=== PATIENT | female | born 1950 | race Caucasian/White ===

== ENCOUNTER 2019-02-23 08:35 | Emergency (ER) | payer OTHER, SELFPAY ==
--- NOTE | 2019-02-23 08:41 | DI.RAD.S_ITS ---
PROCEDURE: XR LUMBAR SPINE 2-3V INDICATIONS: pain, sciatica TECHNIQUE: 3 views of the lumbar spine were acquired. COMPARISON: None. FINDINGS: Bones: 5 [id number] vertebrae are present. There is levoscoliotic bony alignment moderate in severity centered at L2. No definite acute vertebral body compression fractures but associated with the scoliosis is reduction of vertebral height on the right at L2 and to a lesser degree on the right at L3. There is also mild height reduction leftward at the L1 level. Osteophytic spurring is prominent along the upper and middle thirds of the LS spine. Facet osteoarthritis is prominent from L3 inferiorly.. No suspicious bony lesions. Soft tissues: Overlying bowel gas pattern is normal. No suspicious soft tissue calcifications. IMPRESSION: There is a extensive degree of degenerative changes along the lumbosacral spine including disc height reduction, endplate osteophyte formation, convex leftward scoliosis, and asymmetric vertebral height reduction both on the right and the left depending on the level evaluated. Each of these abnormalities appears chronic, and a acute compression fracture is not seen. If MR scanning is obtained for spinal and foraminal stenosis/disc herniation that study would accurately detect a superimposed compression fracture also. Dictated by: Tommie Hodges M.D. on 02/23/2019 at 9:09 Approved by: Tommie Hodges M.D. on 02/23/2019 at 9:13
[2019-02-23 08:48] VITALS: BP 148/108; PULSE 77; RESP 20; TEMP 36.8; O2SAT 97; BMI 24.9
--- NOTE | 2019-02-23 08:48 | ED.BACK ---
HPI - Back Pain/Injury General Chief Complaint: Back Pain/Injury Stated Complaint: 'think i have sciatica' x5day Time Seen by Provider: 02/23/19 08:45 Source: patient Mode of arrival: ambulatory Limitations: no limitations History of Present Illness HPI Narrative: 68-year-old female comes to the emergency department with complaint of possible sciatica. Patient states she has pain kind of in the right sacrum area that radiates down her leg towards her knee it is worse when she sitting or trying to lay. If she standing or walking it is improved patient states she has not had similar symptoms in the past. She has not had any trauma. She has not had any numbness or weakness. No loss of bowel or bladder control. She does have osteoporosis, she has had bilateral hip replacements. She was seen at the clinic 2 days ago and started on gabapentin she has taken it for at least 24 hours but without improvement. She has been taking Tylenol. She did try some Aleve it was helpful but upset her stomach. She denies any fevers or chills. Related Data Home Medications Medication Instructions Recorded Confirmed bupropion HCl 150 mg PO QDAY #0 04/23/16 diazepam [Valium] PO HS #0 tab 04/23/16 sertraline 100 mg PO SEE INSTRUCTIONS #0 tab 04/23/16 trazodone #0 04/23/16 Previous Rx's Medication Instructions Recorded tramadol 50 mg PO Q6H PRN #7 tab 02/23/19 Allergies Allergy/AdvReac Type Severity Reaction Status Date / Time No Known Drug Allergies Allergy Verified 02/23/19 08:41 Review of Systems Review of Systems ROS Unobtainable: All systems reviewed & are unremarkable except as noted in HPI and below Constitutional Denies chills and Denies fever(s) Gastrointestinal Gastrointestinal: Denies abdominal pain, Denies change in stool character, Denies fecal incontinence, Denies nausea and Denies vomiting Genitourinary Denies hematuria, Denies dysuria, Denies flank pain, Denies urinary incontinence, Denies urinary hesitancy and Denies urinary urgency Musculoskeletal Reports as per HPI, Denies abnormal gait, Reports back pain, Denies arthralgias, Denies limited range of motion, Denies numbness, Reports radiating pain into limb and Denies tingling Integumentary/Breasts Denies rash Neurologic Denies abnormal gait, Denies numbness and Denies tingling [facility] Social History Smoking Status: Never smoker Social History Smoking Status: Never smoker Exam Narrative Exam Narrative: GEN: well nourished, well appearing female, alert and oriented x 3, patient appears to be in mild distress. Patient is standing in room and prefers to stand. HEENT: Atraumatic, pupils are equal round reactive to light, extraocular movements are intact. HEART: Regular rate and rhythm without murmur, clicks, rubs. LUNGS:Lungs clear to auscultation, no wheezes, rales, crackles, chest moves symmetrically ABD:bowel sounds normal, soft, non-tender, no guarding, rebound, rigidity, no masses noted, no hepatosplenomegaly :No CVA tenderness BACK: No cervical, thoracic or lumbar vertebral point tenderness. Patient has some tightness in the lower lumbar region she has little bit of pain with palpation along the sacroiliac joint. Patient has normal range of motion. Patient's gait. Rectal exam is deferred. Patient is most uncomfortable while sitting on the edge of the bed for her strength testing. Muscle strength is 5/5 in lower extremities, DTRs are 2/4 and lower extremities. Dorsalis pedis and tibialis pulses are 2+ and lower extremities. Sensation is intact in the lower extremities. MSCL: Non-tender, no muscle atrophy, muscles strength 5/5 upper and lower extremities, full range of motion, normal gait NEURO:CN 2-12 intact, sensation normal, reflexes 2/4 upper and lower extremities. finger nose finger test normal, heel davis test normal, romberg normal Initial Vital Signs Initial Vital Signs: Vital Signs Temperature 98.2 F 02/23/19 08:48 Pulse Rate 77 02/23/19 08:48 Respiratory Rate 20 02/23/19 08:48 Blood Pressure 148/108 H 02/23/19 08:48 Pulse Oximetry 97 02/23/19 08:48 Course Orders Ordered: ED Orders 02/23/19 08:41 XR lumbar spine 2-3V Stat Discontinued Medications Ketorolac Tromethamine (Toradol) 60 mg IM NOW ONE Stop: 02/23/19 08:55 Last Admin: 02/23/19 08:59 Dose: 60 mg Vital Signs - 8 hr 02/23/19 08:48 02/23/19 09:29 Temperature 98.2 F Pulse Rate 77 82 Respiratory Rate 20 16 Blood Pressure 148/108 H Blood Pressure [Left Arm] 152/81 H Pulse Oximetry 97 96 [facility] - Back Pain/Injury Imaging Data Lspine xray: Radiologist's impression: [address] [address] XRay Report Signed Patient: Karina Sneed CMR#: [id number] : [id number]:[id number] Age/Sex: 68 / FDate of Service: 02/23/19 Loc: ED Accession Number: [id number] Procedure: XR lumbar spine 2-3V Ordering Provider: Nimco Coreas D.O. PROCEDURE: XR LUMBAR SPINE 2-3V INDICATIONS: pain, sciatica TECHNIQUE: 3 views of the lumbar spine were acquired. COMPARISON: None. FINDINGS: Bones: 5 [id number] vertebrae are present. There is levoscoliotic bony alignment moderate in severity centered at L2. No definite acute vertebral body compression fractures but associated with the scoliosis is reduction of vertebral height on the right at L2 and to a lesser degree on the right at L3. There is also mild height reduction leftward at the L1 level. Osteophytic spurring is prominent along the upper and middle thirds of the LS spine. Facet osteoarthritis is prominent from L3 inferiorly.. No suspicious bony lesions. Soft tissues: Overlying bowel gas pattern is normal. No suspicious soft tissue calcifications. IMPRESSION: There is a extensive degree of degenerative changes along the lumbosacral spine including disc height reduction, endplate osteophyte formation, convex leftward scoliosis, and asymmetric vertebral height reduction both on the right and the left depending on the level evaluated. Each of these abnormalities appears chronic, and a acute compression fracture is not seen. If MR scanning is obtained for spinal and foraminal stenosis/disc herniation that study would accurately detect a superimposed compression fracture also. Dictated by: Tommie Hodges M.D. on 02/23/2019 at 9:09 Approved by: Tommie Hodges M.D. on 02/23/2019 at 9:13 [facility] Narrative Medical decision making narrative: Patient prefers to avoid any Percocet she has had this in the past. She is on gabapentin currently which he received from the clinic, patient has only taken it for 24 hours into 100 mg 3 times daily. We discussed that this is a titratable medication and that she should do this with her primary care. Also discussed that it takes a couple weeks to really be fully effective. Discussed shaking continue Tylenol 1000 mg every 8 hours. Given a short-term script for Ultram along with a gabapentin. Shared he has a referral for PT and is expressing interest. X-ray shows lots of degenerative changes, she is nontender throughout the L-spine. Suspect that her changes are more chronic and discussed with her at length. Patient ambulated out of department. Discharge Plan Departure Patient Disposition: Home Clinical Impression: Sciatica Discharge Date/Time: 02/23/19 09:28 Interventions: ED Discharge Assessment Last Done: 02/23/19 09:28 Instructions: DI for Back Pain With Sciatica Activity Restrictions/Additional Instructions: Follow-up with your physician in the next 3-5 days for recheck and referral to PT. Continue Tylenol up to a 1000 mg every 8 hours as needed for pain. I would recommend continuing gabapentin this medication take some time for it to become affective. Take pain medication as prescribed. You may take 1-2 tablets every 6 hours as needed for pain. You may take this medication with Tylenol, this medication can make you sleepy do not drive, perform hazardous activities or make any major decisions while taking it. Return to the emergency department for fevers going 100.4 F, rapidly worsening pain, new weakness, numbness, inability to move leg, loss of bowel or bladder control or other new or concerning symptoms. Prescriptions: New tramadol 50 mg tablet 50 mg PO Q6H PRN (Reason: pain) Qty: 7 RF: 0 No Action sertraline 100 MG tablet 100 mg PO SEE INSTRUCTIONS Qty: 0 RF: 0 bupropion HCl 100 MG tablet 150 mg PO QDAY Qty: 0 RF: 0 trazodone 50 mg tablet Qty: 0 RF: 0 diazepam [Valium] 5 mg tablet PO HS Qty: 0 RF: 0
[2019-02-23] MEDS: KETOROLAC 60 MG/2 ML VIAL IM (08:59)
--- NOTE | 2019-02-23 09:00 | ED_ITS ---
HPI - Back Pain/Injury General Chief Complaint: Back Pain/Injury Stated Complaint: 'think i have sciatica' x5day Time Seen by Provider: 02/23/19 08:45 Source: patient Mode of arrival: ambulatory Limitations: no limitations History of Present Illness HPI Narrative: 68-year-old female comes to the emergency department with complaint of possible sciatica. Patient states she has pain kind of in the right sacrum area that radiates down her leg towards her knee it is worse when she sitting or trying to lay. If she standing or walking it is improved patient states she has not had similar symptoms in the past. She has not had any trauma. She has not had any numbness or weakness. No loss of bowel or bladder control. She does have osteoporosis, she has had bilateral hip replacements. She was seen at the clinic 2 days ago and started on gabapentin she has taken it for at least 24 hours but without improvement. She has been taking Tylenol. She did try some Aleve it was helpful but upset her stomach. She denies any fevers or chills. Related Data Home Medications Medication Instructions Recorded Confirmed bupropion HCl 150 mg PO QDAY #0 04/23/16 diazepam [Valium] PO HS #0 tab 04/23/16 sertraline 100 mg PO SEE INSTRUCTIONS #0 tab 04/23/16 trazodone #0 04/23/16 Previous Rx's Medication Instructions Recorded tramadol 50 mg PO Q6H PRN #7 tab 02/23/19 Allergies Allergy/AdvReac Type Severity Reaction Status Date / Time No Known Drug Allergies Allergy Verified 02/23/19 08:41 Review of Systems Review of Systems ROS Unobtainable: All systems reviewed & are unremarkable except as noted in HPI and below Constitutional Denies chills and Denies fever(s) Gastrointestinal Gastrointestinal: Denies abdominal pain, Denies change in stool character, Denies fecal incontinence, Denies nausea and Denies vomiting Genitourinary Denies hematuria, Denies dysuria, Denies flank pain, Denies urinary incontinence, Denies urinary hesitancy and Denies urinary urgency Musculoskeletal Reports as per HPI, Denies abnormal gait, Reports back pain, Denies arthralgias, Denies limited range of motion, Denies numbness, Reports radiating pain into limb and Denies tingling Integumentary/Breasts Denies rash Neurologic Denies abnormal gait, Denies numbness and Denies tingling [facility] Social History Smoking Status: Never smoker Social History Smoking Status: Never smoker Exam Narrative Exam Narrative: GEN: well nourished, well appearing female, alert and oriented x 3, patient appears to be in mild distress. Patient is standing in room and prefers to stand. HEENT: Atraumatic, pupils are equal round reactive to light, extraocular movements are intact. HEART: Regular rate and rhythm without murmur, clicks, rubs. LUNGS:Lungs clear to auscultation, no wheezes, rales, crackles, chest moves symmetrically ABD:bowel sounds normal, soft, non-tender, no guarding, rebound, rigidity, no masses noted, no hepatosplenomegaly :No CVA tenderness BACK: No cervical, thoracic or lumbar vertebral point tenderness. Patient has some tightness in the lower lumbar region she has little bit of pain with palpation along the sacroiliac joint. Patient has normal range of motion. Patient's gait. Rectal exam is deferred. Patient is most uncomfortable while sitting on the edge of the bed for her strength testing. Muscle strength is 5/5 in lower extremities, DTRs are 2/4 and lower extremities. Dorsalis pedis and tibialis pulses are 2+ and lower extremities. Sensation is intact in the lower extremities. MSCL: Non-tender, no muscle atrophy, muscles strength 5/5 upper and lower extremities, full range of motion, normal gait NEURO:CN 2-12 intact, sensation normal, reflexes 2/4 upper and lower extremities. finger nose finger test normal, heel davis test normal, romberg normal Initial Vital Signs Initial Vital Signs: Vital Signs Temperature 98.2 F 02/23/19 08:48 Pulse Rate 77 02/23/19 08:48 Respiratory Rate 20 02/23/19 08:48 Blood Pressure 148/108 H 02/23/19 08:48 Pulse Oximetry 97 02/23/19 08:48 Course Orders Ordered: ED Orders 02/23/19 08:41 XR lumbar spine 2-3V Stat Discontinued Medications Ketorolac Tromethamine (Toradol) 60 mg IM NOW ONE Stop: 02/23/19 08:55 Last Admin: 02/23/19 08:59 Dose: 60 mg Vital Signs - 8 hr 02/23/19 08:48 02/23/19 09:29 Temperature 98.2 F Pulse Rate 77 82 Respiratory Rate 20 16 Blood Pressure 148/108 H Blood Pressure [Left Arm] 152/81 H Pulse Oximetry 97 96 [facility] - Back Pain/Injury Imaging Data Lspine xray: Radiologist's impression: [address] [address] XRay Report Signed Patient: Karina Sneed CMR#: [id number] : [id number]:[id number] Age/Sex: 68 / FDate of Service: 02/23/19 Loc: ED Accession Number: [id number] Procedure: XR lumbar spine 2-3V Ordering Provider: Nimco Coreas D.O. PROCEDURE: XR LUMBAR SPINE 2-3V INDICATIONS: pain, sciatica TECHNIQUE: 3 views of the lumbar spine were acquired. COMPARISON: None. FINDINGS: Bones: 5 [id number] vertebrae are present. There is levoscoliotic bony alignment moderate in severity centered at L2. No definite acute vertebral body compression fractures but associated with the scoliosis is reduction of vertebral height on the right at L2 and to a lesser degree on the right at L3. There is also mild height reduction leftward at the L1 level. Osteophytic spurring is prominent along the upper and middle thirds of the LS spine. Facet osteoarthritis is prominent from L3 inferiorly.. No suspicious bony lesions. Soft tissues: Overlying bowel gas pattern is normal. No suspicious soft tissue calcifications. IMPRESSION: There is a extensive degree of degenerative changes along the lumbosacral spine including disc height reduction, endplate osteophyte formation, convex leftward scoliosis, and asymmetric vertebral height reduction both on the right and the left depending on the level evaluated. Each of these abnormalities appears chronic, and a acute compression fracture is not seen. If MR scanning is obtained for spinal and foraminal stenosis/disc herniation that study would accurately detect a superimposed compression fracture also. Dictated by: Tommie Hodges M.D. on 02/23/2019 at 9:09 Approved by: Tommie Hodges M.D. on 02/23/2019 at 9:13 [facility] Narrative Medical decision making narrative: Patient prefers to avoid any Percocet she has had this in the past. She is on gabapentin currently which he received from the clinic, patient has only taken it for 24 hours into 100 mg 3 times daily. We discussed that this is a titratable medication and that she should do this with her primary care. Also discussed that it takes a couple weeks to really be fully effective. Discussed shaking continue Tylenol 1000 mg every 8 hours. Given a short-term script for Ultram along with a gabapentin. Shared he has a referral for PT and is expressing interest. X-ray shows lots of degenerative changes, she is nontender throughout the L-spine. Suspect that her changes are more chronic and discussed with her at length. Patient ambulated out of department. Discharge Plan Departure Patient Disposition: Home Clinical Impression: Sciatica Discharge Date/Time: 02/23/19 09:28 Interventions: ED Discharge Assessment Last Done: 02/23/19 09:28 Instructions: DI for Back Pain With Sciatica Activity Restrictions/Additional Instructions: Follow-up with your physician in the next 3-5 days for recheck and referral to PT. Continue Tylenol up to a 1000 mg every 8 hours as needed for pain. I would recommend continuing gabapentin this medication take some time for it to become affective. Take pain medication as prescribed. You may take 1-2 tablets every 6 hours as needed for pain. You may take this medication with Tylenol, this medication can make you sleepy do not drive, perform hazardous activities or make any major decisions while taking it. Return to the emergency department for fevers going 100.4 F, rapidly worsening pain, new weakness, numbness, inability to move leg, loss of bowel or bladder control or other new or concerning symptoms. Prescriptions: New tramadol 50 mg tablet 50 mg PO Q6H PRN (Reason: pain) Qty: 7 RF: 0 No Action sertraline 100 MG tablet 100 mg PO SEE INSTRUCTIONS Qty: 0 RF: 0 bupropion HCl 100 MG tablet 150 mg PO QDAY Qty: 0 RF: 0 trazodone 50 mg tablet Qty: 0 RF: 0 diazepam [Valium] 5 mg tablet PO HS Qty: 0 RF: 0
[2019-02-23 09:29] VITALS: BP 152/81; PULSE 82; RESP 16; O2SAT 96
== END 2019-02-23 09:28 | disposition home or self-care (01) ==
PROVIDERS: Emergency Provider Emergency Medicine
DX: M54.30 Sciatica, unspecified side (principal)
CPT/HCPCS: 72100; 96372; 99282; 99283; J1885

== ENCOUNTER 2019-06-03 00:30 | Emergency (ER) | payer OTHER, SELFPAY ==
[2019-06-03 00:30] VITALS: BP 148/85; PULSE 66; RESP 18; TEMP 36.6; O2SAT 99; BMI 25.7
--- NOTE | 2019-06-03 00:54 | DI.RAD.S_ITS ---
PROCEDURE: XR SHOULDER RT MIN 2V INDICATIONS: fall with shoulder pain TECHNIQUE: 2 views of the shoulder were acquired. COMPARISON: None. FINDINGS: Bones: Postsurgical changes of the right humeral head are compatible with a humeral head resurfacing/arthroplasty. There is an adjacent fracture that involves the greater tuberosity. No dislocation is evident. No suspicious osseous lesions are evident. Soft tissues: No suspicious soft tissue calcifications. IMPRESSION: Comminuted proximal right humerus fracture with involvement of the greater tuberosity. Dictated by: Preston Cardoso M.D. on 06/03/2019 at 7:30 Approved by: Preston Cardoso M.D. on 06/03/2019 at 7:32
[2019-06-03] MEDS: HYDROMORPHONE 1 MG INJ IM (01:01)
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
[2019-06-03] MEDS: OXYCODONE/APAP 5/325 PREPACK 1 BOTTLE MISC (04:06)
[2019-06-03 04:10] VITALS: BP 60/30; PULSE 48; RESP 20; O2SAT 98
[2019-06-03 04:20] VITALS: BP 103/63; PULSE 62; O2SAT 98
--- NOTE | 2019-06-03 04:36 | PC.NURSE ---
0415: attempted to D/C pt. Pt sat up at edge of bed. After sitting for a brief moment pt stated she wasn't feeling well. Pt appeared pale, assisted pt back in the bed to the lying position. Repeated BP, 60's/30's HR 40's. Lowered HOB. Called Dr. Aviles to bedside. Pt placed into more of a trendelenberg position. 0430: BP now 100's/60's HR 60's, pt states shes feeling better. Encouraged pt to continue to rest, pt in agreement with plan. Recliner brought into room for spouse. Both resting comfortably.
--- NOTE | 2019-06-03 04:45 | PC.NURSE ---
Per Dr. Aviles pt can stay in room and sleep until ferries are running.
[2019-06-03 05:20] VITALS: BP 136/68; PULSE 63; RESP 16; O2SAT 98
[2019-06-03 06:50] VITALS: BP 135/76; PULSE 73; RESP 18; O2SAT 98
== END 2019-06-03 06:50 | disposition home or self-care (01) ==
PROVIDERS: Emergency Provider Emergency Medicine
DX: S42.301A Unspecified fracture of shaft of humerus, right arm, initial encounter for closed fracture (principal); W18.39XA Other fall on same level, initial encounter
CPT/HCPCS: 73030; 96372; 99283; J1170

== ENCOUNTER → 2021-05-05 10:37 | Outpatient (CLI) | payer MEDICARE, SELFPAY ==
--- NOTE | 2021-05-05 | DI.CT.S_ITS ---
PROCEDURE: CT UE RT WO CON INDICATIONS: Pain in shoulder TECHNIQUE: Noncontrast 1-1.5 mm thick sections acquired from the acromioclavicular joint to the inferior scapula, with coronal and sagittal reformatting. COMPARISON: None. FINDINGS: Image quality: Suboptimal secondary to hardware streak artifact. Bones: Chronic fracture of the surgical neck of the humerus is again noted. There is minimal if any bridging ossification, at the anterior aspect although large amount of fracture lucency persists. Endosteal callus and regional heterotopic ossification. Postsurgical changes related to right shoulder arthroplasty. The hardware appears intact. No evidence of hardware loosening. Mild to moderate AC joint degeneration. Soft tissues: The visualized right lung unremarkable. IMPRESSION: Chronic fracture of the surgical neck of the humerus, with minimal if any bridging ossification. Expected alignment of right shoulder arthroplasty. Dictated by: Raymundo Basurto M.D. on 05/05/2021 at 12:56 Approved by: Raymundo Basurto M.D. on 05/05/2021 at 13:02
== END ==
PROVIDERS: Referring Provider Orthopaedic Surgery; Visit Provider Orthopaedic Surgery
DX: S42.211S Unspecified displaced fracture of surgical neck of right humerus, sequela (principal); M25.511 Pain in right shoulder; M19.011 Primary osteoarthritis, right shoulder; M85.832 Other specified disorders of bone density and structure, left forearm; Z78.0 Asymptomatic menopausal state; Z82.62 Family history of osteoporosis; Z96.611 Presence of right artificial shoulder joint
CPT/HCPCS: 73200; 77080

== ENCOUNTER → 2023-12-29 10:31 | Outpatient (CLI) | payer MEDICARE, SELFPAY ==
[2023-12-29 19:31] LABS: Add Manual Diff / Slide Review NO; Basophils Absolute Auto 100 /uL (0-100); Basophils Percent Auto 1.4 % (0-2); Eosinophils Absolute Auto 100 /uL (0-450); Eosinophils Percent Auto 2.5 % (2-4); Hematocrit 40.7 % (36-46); Hemoglobin 13.5 g/dL (12.0-16.0); Lymphocytes Absolute Auto 1000 /uL (1100-4500); Lymphocytes Percent Auto 18.3 % (25-40); Mean Corpuscular HGB Conc 33.3 % (30-36); Mean Corpuscular Hemoglobin 31.9 PG (26-34); Mean Corpuscular Volume 95.8 fL (80-100); Monocytes Absolute Auto 500 /uL (0-900); Monocytes Percent Auto 8.7 % (3-14); Neutrophils Absolute Auto 3900 /uL (1500-7000); Neutrophils Percent Auto 69.1 % (50-75); Platelet Count 258 X10^3/uL (150-400); Red Blood Cell Count 4.25 X10^6/uL (4.0-5.2); Red Cell Distribution Width 14.3 % (11.6-14.8); White Blood Cell Count 5.7 X10^3/uL (4.5-11.0)
[2023-12-29 21:17] LABS: TSH w/ Reflex to FT4 1.87 uIU/mL (0.47-4.68)
[2023-12-29 22:39] LABS: Alanine Aminotransferase 25 IU/L (<35); Albumin 4.1 g/dL (3.5-5.0); Albumin Globulin Ratio 1.3 (1.0-2.8); Alkaline Phosphatase 111 U/L (38-126); Aspartate Aminotransferase 33 IU/L (14-36); BUN Creatinine Ratio 22.5 (6-22); Bilirubin Total 0.6 mg/dL (0.2-1.3); Blood Urea Nitrogen 18 mg/dL (7-17); Calcium 9.5 mg/dL (8.4-10.2); Carbon Dioxide 29 mmol/L (22-32); Chloride 107 mmol/L (98-107); Cholesterol 261 mg/dL (140-199); Estimated Glomerular Filt Rate > 60 mL/min (>60); Globulin 3.1 g/dL (1.7-4.1); Glucose 120 mg/dL (80-110); HDL Cholesterol 97 mg/dL (40-60); HEMOLYSIS < 15 (0-50); LDL Cholesterol Calculated 145 mg/dL (<100); Potassium 4.5 mmol/L (3.4-5.1); Sodium 141 mmol/L (137-145); Total Protein 7.2 g/dL (6.3-8.2); Triglycerides 97 mg/dL (35-150)
[2023-12-29 23:30] LABS: Vitamin B12 745 pg/mL (239-931)
== END ==
PROVIDERS: PCP Physician Assistant Medical; Visit Provider Family Medicine
DX: E78.5 Hyperlipidemia, unspecified (principal); R41.3 Other amnesia
CPT/HCPCS: 80053; 80061; 82607; 84443; 85025